=== PATIENT | male | born 2000 | race Hispanic/Latino ===

== ENCOUNTER 2025-02-26 15:01 | Inpatient (IN) | payer OTHER ==
[~2025-02-26] VITALS: Ht 175.3 cm; Wt 69.1 kg
[2025-02-26 16:15] LABS: PLATELET COUNT, AUTOMATED 239 10^3/uL (150-450)
[2025-02-26 16:39] LABS: AMPHETAMINES LEVEL URINE NEGATIVE (NEGATIVE); BARBITURATES URINE NEGATIVE (NEGATIVE); BENZODIAZEPINES URINE NEGATIVE (NEGATIVE); COCAINE METABOLITE URINE NEGATIVE (NEGATIVE); METHADONE URINE NEGATIVE (NEGATIVE); OPIATES URINE NEGATIVE (NEGATIVE); PHENCYCLIDINE URINE NEGATIVE (NEGATIVE)
[2025-02-26 16:40] LABS: CANNABINOIDS URINE NEGATIVE (NEGATIVE)
[2025-02-26 16:46] LABS: ETHYL ALCOHOL (ETHANOL) < 0.003 % (0.000-0.010)
[2025-02-26 16:48] LABS: ALT/SGPT 29 U/L (7.0-40); AST/SGOT 46 U/L (<34); CALCIUM LEVEL 8.9 MG/DL (8.5-10.1); CARBON DIOXIDE LEVEL 26 MMOL/L (20-31); CHLORIDE LEVEL 105 MMOL/L (98-107); CREATININE FOR GFR 1.19 MG/DL (0.70-1.30); GLOMERULAR FILTRATION RATE 87.5 (>60); POTASSIUM SERUM 3.8 MMOL/L (3.5-5.1); SALICYLATE LEVEL < 3.0 MG/DL (<30); SODIUM LEVEL 145 MMOL/L (136-145)
[2025-02-26] MEDS ORDERED: traZODone 50 MG TAB PO PRN (18:10)
[2025-02-26] MEDS ORDERED: IBUPROFEN 400 MG TAB PO PRN (18:10)
[2025-02-26] MEDS ORDERED: MOM 30 ML SUSPENSION UDC PO PRN (18:10)
[2025-02-26] MEDS ORDERED: ACETAMINOPHEN 325 MG TAB PO PRN (18:10)
[2025-02-26] MEDS ORDERED: MAALOX 30 ML SUSP *UDC PO PRN (18:10)
[2025-02-26] MEDS ORDERED: HOME MED LIST COMPLETE! XX SCH (18:20)
[2025-02-26 20:42] VITALS: BP 135/73; TEMP 97.2; O2SAT 97
[2025-02-27 06:29] VITALS: BP 143/88; TEMP 97.3; O2SAT 100
[2025-02-27 14:00] VITALS: BP 120/73; TEMP 98.7; O2SAT 96
[2025-02-27] MEDS: SERTRALINE HCL 50 MG TAB PO SCH (21:00)
[2025-02-28 06:08] VITALS: BP 118/66; TEMP 97.5; O2SAT 96
[2025-02-28 16:08] VITALS: BP 123/76; TEMP 98.1; O2SAT 98
[2025-02-28] MEDS: SERTRALINE HCL 25 MG TABLET PO SCH (20:23)
[2025-03-01 06:40] VITALS: BP 135/60; TEMP 97.8; O2SAT 95
[2025-03-01 15:04] VITALS: BP 127/72; TEMP 98.7; O2SAT 98
[2025-03-02 06:37] VITALS: BP 128/67; TEMP 98.4; O2SAT 100
[2025-03-02] MEDS ORDERED: HYDR-643 PO (09:21)
[2025-03-02] MEDS ORDERED: HYDR-3363 PO (09:21)
[2025-03-02] MEDS ORDERED: SERT25TA21 PO (09:21)
[2025-03-02 15:12] VITALS: BP 135/78; TEMP 98.8; O2SAT 98
[2025-03-03 06:43] VITALS: BP 119/59; TEMP 97; O2SAT 97
== END 2025-03-03 11:25 | disposition home or self-care (01) | DRG 885 ==
LOC: M ED 15:01 → M ED INP 18:09 → M PSY 20:32
PROVIDERS: ADMIT Student in an Organized Health Care Education/Training Program; ATTEND Psychiatry & Neurology Psychiatry
DX: F32.1 Major depressive disorder, single episode, moderate (principal); R45.851 Suicidal ideations; Z56.4 Discord with boss and workmates; Z56.6 Other physical and mental strain related to work; Z62.811 Personal history of psychological abuse in childhood; F41.9 Anxiety disorder, unspecified; Z63.8 Other specified problems related to primary support group

== ENCOUNTER 2025-03-23 14:03 | Inpatient (IN) | payer OTHER ==
[~2025-03-23] VITALS: Ht 175.3 cm; Wt 65.9 kg
[~2025-03-23 14:03] MED LIST: HYDR-3363 PO; HYDR-643 PO; SERT25TA21 PO
[2025-03-23 16:03] LABS: PLATELET COUNT, AUTOMATED 226 10^3/uL (150-450)
[2025-03-23] MEDS ORDERED: HYDR-3363 PO (16:09)
[2025-03-23] MEDS ORDERED: SERT25TA21 PO (16:09)
[2025-03-23] MEDS ORDERED: MED REC COMMENT (16:10)
[2025-03-23] MEDS ORDERED: HOME MED LIST COMPLETE! XX SCH (16:10)
[2025-03-23 16:17] LABS: AMPHETAMINES LEVEL URINE NEGATIVE (NEGATIVE); BARBITURATES URINE NEGATIVE (NEGATIVE); BENZODIAZEPINES URINE NEGATIVE (NEGATIVE); CANNABINOIDS URINE NEGATIVE (NEGATIVE); COCAINE METABOLITE URINE NEGATIVE (NEGATIVE); METHADONE URINE NEGATIVE (NEGATIVE); OPIATES URINE NEGATIVE (NEGATIVE); PHENCYCLIDINE URINE NEGATIVE (NEGATIVE)
[2025-03-23 16:19] LABS: ETHYL ALCOHOL (ETHANOL) < 0.003 % (0.000-0.010)
[2025-03-23 16:21] LABS: ALT/SGPT 22 U/L (7.0-40); AST/SGOT 25 U/L (<34); CALCIUM LEVEL 8.8 MG/DL (8.5-10.1); CARBON DIOXIDE LEVEL 27 MMOL/L (20-31); CHLORIDE LEVEL 103 MMOL/L (98-107); CREATININE FOR GFR 1.00 MG/DL (0.70-1.30); GLOMERULAR FILTRATION RATE > 90.0 (>60); POTASSIUM SERUM 3.6 MMOL/L (3.5-5.1); SALICYLATE LEVEL < 3.0 MG/DL (<30); SODIUM LEVEL 142 MMOL/L (136-145)
[2025-03-23] MEDS ORDERED: MOM 30 ML SUSPENSION UDC PO PRN (16:55)
[2025-03-23] MEDS ORDERED: MAALOX 30 ML SUSP *UDC PO PRN (16:55)
[2025-03-23 17:50] VITALS: BP 123/76; TEMP 98.6; O2SAT 98
[2025-03-24 06:36] VITALS: BP 107/59; TEMP 97.7; O2SAT 100
[2025-03-24] MEDS: busPIRone 5 MG TAB PO SCH (10:38)
[2025-03-24 12:39] LABS: FREE T4 1.21 NG/DL (0.89-1.76)
[2025-03-24 14:51] VITALS: BP 118/64; TEMP 98.2; O2SAT 98
[2025-03-25 06:44] VITALS: BP 122/79; TEMP 98; O2SAT 99
[2025-03-25 15:45] VITALS: BP 129/62; TEMP 97.7; O2SAT 99
[2025-03-25] MEDS: traZODone 50 MG TAB PO PRN (20:02)
[2025-03-26 06:29] VITALS: BP 94/61; TEMP 98.1; O2SAT 100
[2025-03-26] MEDS: ACETAMINOPHEN 325 MG TAB PO PRN (11:45)
[2025-03-26] MEDS: IBUPROFEN 400 MG TAB PO PRN (13:59)
[2025-03-26 15:08] VITALS: BP 127/67; TEMP 97.9; O2SAT 99
[2025-03-27 06:19] VITALS: BP 99/60; TEMP 98.4; O2SAT 99
[2025-03-27 15:11] VITALS: BP 108/62; TEMP 98.1; O2SAT 100
[2025-03-28 06:37] VITALS: BP 118/65; TEMP 97.8; O2SAT 97
[2025-03-28] MEDS: FLUoxetine 20 MG CAP PO SCH (08:24)
[2025-03-28 16:30] VITALS: BP 115/65; TEMP 97.8; O2SAT 99
[2025-03-29 06:27] VITALS: BP 103/53; TEMP 97.7; O2SAT 95
[2025-03-29 15:16] VITALS: BP 120/73; TEMP 98.4; O2SAT 100
[2025-03-29] MEDS: MIRTAZAPINE 15 MG TAB PO SCH (21:03)
[2025-03-30 06:29] VITALS: BP 106/57; TEMP 98; O2SAT 100
[2025-03-30 14:36] VITALS: BP 124/67; TEMP 97.4; O2SAT 99
[2025-03-31 06:25] VITALS: BP 111/69; TEMP 97.6; O2SAT 99
[2025-03-31] MEDS ORDERED: HYDR50TA70 PO (09:10)
[2025-03-31] MEDS ORDERED: TRAZ-252 PO (09:10)
[2025-03-31] MEDS ORDERED: FLUO-365 PO (09:10)
[2025-03-31] MEDS ORDERED: MIRT-10 PO (09:10)
[2025-03-31] MEDS ORDERED: BUSP10TA PO (09:10)
== END 2025-03-31 13:01 | disposition home or self-care (01) | DRG 885 ==
LOC: M ED 14:03 → EDBD 14:03 → M ED INP 16:50 → M PSY 17:48
PROVIDERS: ADMIT General Practice; ATTEND General Practice
DX: F33.1 Major depressive disorder, recurrent, moderate (principal); R45.851 Suicidal ideations; F41.9 Anxiety disorder, unspecified; Z79.899 Other long term (current) drug therapy; Z56.4 Discord with boss and workmates; Z56.6 Other physical and mental strain related to work; Z63.8 Other specified problems related to primary support group